=== PATIENT | female | born 1945 | race Caucasian/White ===

== ENCOUNTER 2017-08-09 16:39 | Inpatient (IN) ==
[2017-08-09] MEDS: *HR* Metformin 500 MG TABLET PO SCH (20:35)
[2017-08-10] MEDS: Ibuprofen 800 MG TABLET PO SCH ×4 (01:16→18:37)
[2017-08-10 05:44] LABS: Basophils # 0.1 K/mcL (0.0-0.2); Basophils % 0.9 %; Eosinophils # 0.3 K/mcL (0.0-0.6); Eosinophils % 4.8 %; Hematocrit 32.8 % (35.3-44.9); Hemoglobin 10.8 g/dL (11.5-15.4); Immature Granulocytes % 0.2 % (0-4); Lymphocytes # 1.7 K/mcL (0.6-4.6); Lymphocytes % 31.1 %; Mean Corpuscular HGB Conc 32.9 g/dL (31.6-35.5); Mean Corpuscular Hemoglobin 27.5 pg (28.0-33.3); Mean Corpuscular Volume 83.5 fL (83.0-100.0); Mean Platelet Volume 9.9 fL (9.4-12.4); Monocytes # 0.5 K/mcL (0.0-1.3); Monocytes % 8.9 %; Neutrophils # 2.9 K/mcL (1.6-8.9); Platelet Count 257 K/mcL (140-400); Red Blood Count 3.93 M/mcL (3.82-4.97); Red Cell Distribution Width 18.6 % (11.5-14.5); Segmented Neutrophils % 54.1 %
[2017-08-10 05:46] LABS: INR 1.1; Prothrombin Time 12.2 Seconds (9.4-12.1)
[2017-08-10 05:49] LABS: Activated Partial Thrombo Time 26.6 Seconds (26.0-36.0)
[2017-08-10 05:58] LABS: BUN/Creatinine Ratio 8 (6-26); Calcium 8.7 mg/dL (8.6-10.8); Carbon Dioxide 23 mEq/L (19-29); Chloride 107 mEq/L (98-109); Glucose 118 mg/dL (70-99); Osmolality,Calculated 282 (280-300); Potassium 3.5 mEq/L (3.5-4.5); Sodium 137 mEq/L (136-145); eGFR For African Americans > 60 (> 60); eGFR For Non-African Americans > 60 (> 60)
[2017-08-10 06:08] LABS: Blood Urea Nitrogen 5 mg/dL (7-20)
[2017-08-10] MEDS: Aspirin 81 MG TAB.CHEW PO SCH (08:43)
[2017-08-10] MEDS: Lisinopril 20 MG TABLET PO SCH (08:43)
[2017-08-10] MEDS: *HR* Metformin 500 MG TABLET PO SCH ×2 (08:43→20:26)
--- NOTE | 2017-08-10 13:55 | Physical Med Progress Note ---
Date of Encounter: 08/10/17 Time of Encounter: 13:51 Physical Medicine-PN: Subj Interval history: PMR PCC Note Patient is SBA for ambulation. Min A for bed mobility and transfers. Patient ambulated with wheeled walker. Patient ambulated 300 feet. Ptient is set up with SBA for dressing and self care. Plan for discharge to home on 08/12/17. Patient has family to assist at home. - Constitutional Vitals: Vital Signs Temp Pulse Resp BP Pulse Ox 08/10/17 12:58 82 16 160/89 92 08/10/17 09:00 98.5 F 82 16 160/89 92 08/10/17 08:58 82 16 160/89 92 08/10/17 03:12 98.0 F 66 16 159/80 95 08/09/17 23:39 97.9 F 64 16 145/71 97 08/09/17 19:10 98.2 F 80 18 150/79 96 08/09/17 18:00 98.0 F 82 16 156/83 96 Intake and Output 08/09/17 08/10/17 08/10/17 23:59 07:59 15:59 Intake Total 240 / 240 Balance 240 / 240 Intake: Oral 240 / 240 Other: Meal Breakfast Percent of Meal Consumed 75% Stool Size Moderate Stool Consistency loose soft Stool Color Brown # Voids 1 1 2 Weight 49.3 kg Blood Glucose* 132 166 Physical Medicine-PN: Obj Data - Labs CBC & Chem 7: 08/10/17 05:30 08/10/17 05:30 Labs: Laboratory Results - last 24 hr 08/09/17 08/10/17 08/10/17 19:39 05:30 05:30 WBC 5.4 RBC 3.93 Hgb 10.8 L Hct 32.8 L MCV 83.5 MCH 27.5 L MCHC 32.9 RDW 18.6 H Plt Count 257 MPV 9.9 Immature Gran % 0.2 Seg Neutrophils % 54.1 Lymphocytes % 31.1 Monocytes % 8.9 Eosinophils % 4.8 Basophils % 0.9 Neutrophils # 2.9 Lymphocytes # 1.7 Monocytes # 0.5 Eosinophils # 0.3 Basophils # 0.1 PT 12.2 H INR 1.1 APTT 26.6 Sodium Potassium Chloride Carbon Dioxide BUN Creatinine Est GFR ( Amer) Est GFR (Non-Af Amer) BUN/Creatinine Ratio Glucose POC Glucose 132 H Calculated Osmolality Calcium 08/10/17 08/10/17 05:30 07:32 WBC RBC Hgb Hct MCV MCH MCHC RDW Plt Count MPV Immature Gran % Seg Neutrophils % Lymphocytes % Monocytes % Eosinophils % Basophils % Neutrophils # Lymphocytes # Monocytes # Eosinophils # Basophils # PT INR APTT Sodium 137 Potassium 3.5 Chloride 107 Carbon Dioxide 23 BUN 5 L Creatinine 0.64 Est GFR ( Amer) > 60 Est GFR (Non-Af Amer) > 60 BUN/Creatinine Ratio 8 Glucose 118 H POC Glucose 113 H Calculated Osmolality 282 Calcium 8.7 - ABG Interpretation ABG results: PT/INR, D-dimer PT 12.2 Seconds (9.4-12.1) H 08/10/17 05:30 - VTE Documentation of Mechanical Device: Graduated compression elastic hosiery Consult Discharge Plan - Plan Referrals: Get Kirkpatrick Jr, MD [Primary Care Provider] -
--- NOTE | 2017-08-10 15:43 | Internal Med History&Physical ---
Date of Encounter: 08/10/17 Time of Encounter: 15:38 Assessment and Plan (1) NSTEMI (non-ST elevated myocardial infarction) Current visit: No Status: Acute Patient had a myocardial infarction which precipitated R Gath which precipitated to CABG. Patient had a colonoscopy which revealed a colon cancer in the right colon. And in turn she underwent a colectomy. The heart attack and compartment CABG was in June (2) Colon cancer Current visit: No Status: Acute Diagnostic colonoscopy Qualifiers: Colon location: ascending Qualified Code(s): C18.2 - Malignant neoplasm of ascending colon (3) Diabetes mellitus type 2 in nonobese Current visit: No Status: Chronic Follow blood sugars (4) FH: CABG (coronary artery bypass surgery) Current visit: No Status: Chronic At the CABG in June. It was felt she needed that prior to having her colon resection Internal Medicine - H&P: HPI Chief complaint: Patient is deconditioned after having been through a CABG sometime before f Admitted From: Home History of present illness: Ms. Jimenez is a 71 year old female Patient has not done much therapy since her colectomy. But she is being up out of bed moving around and I think with a few days here that she should do well be able to be discharged home for household distances Past Med Surg Social Fam HX - Past Medical History Medical history: cancer, coronary artery disease, diabetes, hyperlipidemia, hypertension, myocardial infarction Psychiatric history: no psych history - Past Surgical History Surgical History: appendectomy, coronary bypass (CABG) - Social History Smoking Status: Former smoker Smokeless Tobacco Status: No Alcohol use: none Drug use: none - Family History Father Family Member Ethnicity: Non- Living Status: Age at : 72 Cause of : RESP FAILURE Hx Family Respiratory Disorders: Yes Internal Medicine - H&P: Meds Atorvastatin [Lipitor] 40 mg PO HS 06/03/17 [History] Ferrous Sulfate [Iron] 325 mg PO DAILY 06/03/17 [History] Lisinopril [Zestril] 20 mg PO DAILY 06/03/17 [History] metFORMIN [Glucophage] 1,000 mg PO BID 06/03/17 [History] Metoprolol [Lopressor] 25 mg PO BID #60 tablet 07/07/17 [Rx] OxyCODONE/APAP 5/325 [Percocet 5/325 MG] 1 each PO Q4HR PRN #20 tablet 07/07/17 [Rx] Aspirin 81 mg PO DAILY 08/05/17 [History] Omeprazole Magnesium [Prilosec Otc] 20 mg PO DAILY 08/05/17 [History] Docusate [Colace] 100 mg PO BID #30 udc 08/09/17 [Rx] Ibuprofen 800 mg PO Q8H #60 tablet 08/09/17 [Rx] OxyCODONE/APAP 5/325 [Percocet 5/325 MG] 1 each PO Q6HR PRN #28 tablet 08/09/17 [Rx] 3 Allergy/AdvReac Type Severity Reaction Status Date / Time No Known Allergies Allergy Verified 08/05/17 13:42 All Systems PM: A 10-system review of systems was performed and is negative for pertinent findings except as documented above in the HPI. - Constitutional Constitutional: no anorexia, no chills, no excessive sweating, no fatigue, no fever(s), no falls, no lethargy, no malaise, no night sweats, no weakness, no weight gain, no weight loss - EENT Eyes: no blurry vision, no change in vision, no decreased night vision, no diplopia, no discharge, no dry eye, no floaters, no irritation, no itchy eyes, no loss of peripheral vision, no loss of vision, no pain, no photophobia, no seeing flashes, no spots in vision, no tunnel vision, no other visual disturbances Ears: no decreased hearing, no ear discharge, no ear pain, no tinnitus Nose, mouth and throat: no as per HPI, no bleeding gums, no change in voice, no dental pain, no dry mouth, no dysphagia, no epistaxis, no facial pain, no hoarseness, no nasal congestion, no nasal discharge, no nasal obstruction, no neck mass, no neck pain, no nose pain, no odynophagia, no post-nasal drip, no sinus pain, no sinus pressure, no sore throat, no throat swelling, no tongue swelling - Breasts Breasts: no change in shape, no mass, no pain, no nipple discharge, no skin changes, no swelling - Cardiovascular Cardiovascular ROS IM: no chest pain, no claudication, no diaphoresis, no dyspnea, no dyspnea on exertion, no edema, no irregular heart rhythm, no lightheadedness, no orthopnea, no palpitations, no paroxysmal nocturnal dyspnea , no syncope - Respiratory Respiratory: no cough, no dyspnea, no hemoptysis, no dyspnea on exertion, no wheezing, no snoring, no excessive phlegm production, no change in phlegm color , no pain with cough - Gastrointestinal Gastrointestinal: loose stools, no abdominal pain, no belching, no bloating, no change in bowel habits, no change in stool character, no coffee ground emesis, no cramping, no excessive flatus, no fecal incontinence, no heartburn, no hematemesis, no hematochezia, no melena, no nausea, no odynophagia - Genitourinary Genitourinary: no abnormal menses, no abnormal vaginal bleeding, no amenorrhea, no breast change in shape, no breast mass, no breast pain, no breast skin changes, no breast swelling, no change in libido, no change in urinary stream, no difficulty conceiving, no difficulty urinating, no difficulty voiding, no dysmenorrhea, no dyspareunia, no dysuria, no flank pain, no genital lesions, no genital pruritis, no hematuria, no light periods, no menorrhagia, no metrorrhagia, no nipple discharge, no nocturia, no pelvic pain, no post void dribbling, no prolapse symptoms, no sexual dysfunction, no urinary frequency, no urinary hesitancy, no urinary incontinence, no urinary urgency, no vaginal discharge, no vaginal dryness, no vaginal odor, no vaginal pruritis, no other Menstruation: amenorrhea, menses variable - Musculoskeletal Musculoskeletal ROS IM: no arthralgias, no atrophy, no back pain, no deformity, no joint swelling, no limited range of motion, no muscle cramps, no muscle weakness, no myalgias, no neck pain, no numbness, no stiffness, no tingling - Integumentary Integumentary IM: no erythema, no new lesions, no non-healing lesions, no pruritus, no rash, no skin ulcer, no unusual bruising, no jaundice - Neurological Neurological ROS: no abnormal gait, no abnormal hearing, no abnormal movements, no abnormal speech, no behavioral changes, no burning sensations, no confusion, no convulsions, no disequilibrium, no dizziness, no focal weakness, no lack of coordination, no loss of vision, no memory loss, no paresthesias, no radicular pain, no tingling, no tremor(s), no vertigo, no weakness, no other visual disturbances - Psychiatric Psychiatric: no abnormal sleep pattern, no anhedonia, no anxiety, no auditory hallucinations, no behavioral changes, no change in appetite, no change in libido, no depression, no difficulty concentrating, no hallucinations, no irritability, no memory loss, no panic attacks, no paranoia, no suicidal ideation, no visual hallucinations, no tactile - Endocrine Endocrine IM: no cold intolerance, no deeping of the voice, no excessive sweating, no fatigue, no flushing, no heat intolerance, no polydipsia, no polyphagia, no polyuria - Hematologic/Lymphatic Hematologic/Lymphatic: no easy bleeding, no easy bruising, no lymphadenopathy - Allergic/Immunologic Allergic/Immunologic: no tongue swelling, no throat swelling, no itchy eyes, no seasonal rhinorrhea, no uticaria, no wheezing, no GI upset with certain foods, no lip swelling - Constitutional Vitals: Temp Pulse Resp BP Pulse Ox 98.5 F 82 16 160/89 92 08/10/17 09:00 08/10/17 12:58 08/10/17 12:58 08/10/17 12:58 08/10/17 12:58 - Head Head exam: Present: atraumatic, normal inspection, normocephalic - Neck Neck exam general surgery: Present: supple, trachea midline. Absent: lymphadenopathy - Respiratory Respiratory exam: Present: CTAB. Absent: accessory muscle use, rales, rhonchi, wheezes - Cardiovascular Cardiovascular exam: Present: RRR, +S1, +S2. Absent: diastolic murmur, gallop, rubs, systolic murmur - GI/Abdominal GI/Abdominal exam: Present: normal bowel sounds, soft, no peritoneal signs. Absent: distended, tenderness Additional comments: Patient denies any abdominal pain. She has a clean large dressing along the mid lower abdomen. Internal Med - H&P Results - Labs CBC & Chem 7: 08/10/17 05:30 08/10/17 05:30 Labs: Short CBC 08/10/17 Range/Units 05:30 WBC 5.4 (4.3-11.1) K/mcL Hgb 10.8 L (11.5-15.4) g/dL Hct 32.8 L (35.3-44.9) % Plt Count 257 (140-400) K/mcL Neutrophils # 2.9 (1.6-8.9) K/mcL BMP 08/10/17 05:30 Sodium 137 Potassium 3.5 Chloride 107 Carbon Dioxide 23 BUN 5 L Creatinine 0.64 Glucose 118 H Calcium 8.7 Labs stable - VTE Documentation of Mechanical Device: Graduated compression elastic hosiery
[2017-08-10] MEDS: *HR* OxyCODONE/APAP 5/325 TABLET PO PRN (21:48)
[2017-08-11] MEDS: Ibuprofen 800 MG TABLET PO SCH ×3 (03:59→20:06)
[2017-08-11] MEDS: *HR* OxyCODONE/APAP 5/325 TABLET PO PRN (05:17)
[2017-08-11] MEDS: Lisinopril 20 MG TABLET PO SCH (08:16)
[2017-08-11] MEDS: *HR* Metformin 500 MG TABLET PO SCH ×2 (08:16→20:06)
[2017-08-11] MEDS: Aspirin 81 MG TAB.CHEW PO SCH (08:16)
--- NOTE | 2017-08-11 14:05 | Internal Med Progress Note ---
Date of Encounter: 08/11/17 Time of Encounter: 14:03 - Assessment and plan (1) NSTEMI (non-ST elevated myocardial infarction) Current Visit: No Status: Acute Assessment and plan: By history (2) Colon cancer Current Visit: No Status: Acute Assessment and plan: Cancer of the right colon was found on colonoscopy. Biopsy was done and noted that was colon cancer. After her CABG in her [place] she was stabilized and then a right colectomy was done. And she is here for rehabilitation due to deconditioning. Qualifiers: Colon location: ascending Qualified Code(s): C18.2 - Malignant neoplasm of ascending colon (3) Diabetes mellitus type 2 in nonobese Current Visit: No Status: Chronic Assessment and plan: Following blood sugars (4) FH: CABG (coronary artery bypass surgery) Current Visit: No Status: Chronic Assessment and plan: She had a CABG in June. As a breakfast before her colon surgery - Time Spent With Patient less than 15 minutes - Subjective Interval history: Seems to be doing well C PT OT TR and speech notes. - Constitutional Vitals: Temp Pulse Resp BP Pulse Ox 98.6 F 56 18 186/71 95 08/11/17 07:33 08/11/17 07:33 08/11/17 07:33 08/11/17 07:33 08/11/17 07:33 - Head Head exam: Present: atraumatic, normal inspection, normocephalic - Neck Neck exam general surgery: Present: supple, trachea midline. Absent: lymphadenopathy - Respiratory Respiratory exam: Present: CTAB. Absent: accessory muscle use, rales, rhonchi, wheezes - GI/Abdominal GI/Abdominal exam: Present: normal bowel sounds, soft, no peritoneal signs. Absent: distended, tenderness Internal Medicine: Result - Labs CBC & Chem 7: 08/10/17 05:30 08/10/17 05:30 Labs: Patient's lab is stable - ABG Interpretation ABG results: PT/INR, D-dimer PT 12.2 Seconds (9.4-12.1) H 08/10/17 05:30 - VTE Documentation of Mechanical Device: Graduated compression elastic hosiery Consult Discharge Plan - Plan Referrals: Get Kirkpatrick Jr, MD [Primary Care Provider] -
[2017-08-12] MEDS: Ibuprofen 800 MG TABLET PO SCH ×2 (03:57→08:42)
[2017-08-12] MEDS: Lisinopril 20 MG TABLET PO SCH (08:41)
[2017-08-12] MEDS: Aspirin 81 MG TAB.CHEW PO SCH (08:42)
[2017-08-12] MEDS: *HR* Metformin 500 MG TABLET PO SCH (08:42)
[2017-08-12 10:35] VITALS: BP 161/85
--- NOTE | 2017-09-09 13:44 | Discharge Summary ---
Date of Encounter: 08/12/17 Time of Encounter: 13:43 - Discharge Diagnosis (1) NSTEMI (non-ST elevated myocardial infarction) Priority: Primary Status: Acute (2) Colon cancer Priority: Primary Status: Acute Qualifiers: Colon location: ascending Qualified Code(s): C18.2 - Malignant neoplasm of ascending colon (3) Diabetes mellitus type 2 in nonobese Priority: Secondary Status: Chronic (4) FH: CABG (coronary artery bypass surgery) Priority: Secondary Status: Chronic - Discharge Medications Home Medications: Atorvastatin [Lipitor] 40 mg PO HS 06/03/17 [History] Ferrous Sulfate [Iron] 325 mg PO DAILY 06/03/17 [History] Lisinopril [Zestril] 20 mg PO DAILY 06/03/17 [History] metFORMIN [Glucophage] 1,000 mg PO BID 06/03/17 [History] Metoprolol [Lopressor] 25 mg PO BID #60 tablet 07/07/17 [Rx] OxyCODONE/APAP 5/325 [Percocet 5/325 MG] 1 each PO Q4HR PRN #20 tablet 07/07/17 [Rx] Aspirin 81 mg PO DAILY 08/05/17 [History] Omeprazole Magnesium [Prilosec Otc] 20 mg PO DAILY 08/05/17 [History] Docusate [Colace] 100 mg PO BID #30 udc 08/09/17 [Rx] Ibuprofen 800 mg PO Q8H #60 tablet 08/09/17 [Rx] OxyCODONE/APAP 5/325 [Percocet 5/325 MG] 1 each PO Q6HR PRN #28 tablet 08/09/17 [Rx] Allergies/Adverse Reactions: 3 Allergy/AdvReac Type Severity Reaction Status Date / Time No Known Allergies Allergy Verified 08/05/17 13:42 Date of admission: 08/09/17 17:40 Primary care physician: Get Kirkpatrick Jr, MD Consults: 08/09/17 17:57 Consult to Nutrition [CONS] Routine Comment: Consulting Provider: NUTRITION Reason for Dietary Consult: MST Score Consult to Transport Rn [CONS] Routine Reason for SW Consult: REHAB REQUESTING INFO REGARDING ADV. DIRECTIVES 08/09/17 18:25 Consult to Occupational Therapy [CONS] Routine Comment: Evaluate, develop and implement POC Reason for Consult: S/P R COLECTOMY Consult to Physical Therapy [CONS] Routine Comment: Evaluate, develop and implement POC Reason for Consult: S/P R COLECTOMY Consult to Recreational Therapy [CONS] Routine Comment: Evaluate, develop and implement POC Discharging clinician: Dennis Robertson Anticipated date of discharge: 08/12/17 - Patient Status Disposition: Home, Self-Care Condition: Good Functional capacity at discharge: uses cane/walker Overall status at discharge: patient is progressing back to baseline - Discharge Instructions Instructions: Colectomy (DC) Follow Up With: Rich Rangel MD [Partnered Physician] - 08/15/17 1:35 pm Shirlene Garner CNP [Advanced Practice Nurse] - 08/17/17 2:00 pm Donna Camacho CNP [Advanced Practice Nurse] - 08/22/17 9:45 am - Diet and Activity Activity: ambulate only with your walker Diet: diabetic diet Interval History: Patient was admitted for deconditioning. She is just gone through some very severe medical issues here recently. She was found to have colon cancer but then had an TN and heart catheter and a CABG. After she was stabilized she had a colon resection. She was pretty deconditionied. Hospital course: Ms. Jimenez is a 71 year old female We will came in for deconditioning after several medical problems. She walked 300 feet with a walker doing well and is working with all modalities of therapy - Time Spent with Patient Total time spent providing and/or coordinating discharge services: Less than 30 minutes - Constitutional Vitals: Temp Pulse Resp BP Pulse Ox 97.5 F L 85 18 161/85 99 08/12/17 07:00 08/12/17 07:00 08/12/17 07:00 08/12/17 10:35 08/12/17 07:00 - Head Head exam: Present: atraumatic, normal inspection, normocephalic - Neck Neck exam general surgery: Present: supple, trachea midline. Absent: lymphadenopathy - Respiratory Respiratory exam: Present: CTAB. Absent: accessory muscle use, rales, rhonchi, wheezes - Cardiovascular Cardiovascular exam: Present: RRR, +S1, +S2. Absent: diastolic murmur, gallop, rubs, systolic murmur - VTE Documentation of Mechanical Device: Graduated compression elastic hosiery
== END 2017-08-12 12:45 | disposition home or self-care (01) | DRG 949 ==
LOC: INPGRE 17:40
PROVIDERS: ADMIT Internal Medicine; ATTEND Internal Medicine

== ENCOUNTER 2018-10-24 16:17 | Inpatient (IN) ==
[2018-10-27] MEDS ORDERED: Temazepam 15 MG CAPSULE PO PRN (18:29)
[2018-10-27] MEDS ORDERED: D5% in Water 1,000 ML IVC PRN (18:40)
[2018-10-27] MEDS ORDERED: Dextrose Gel 15 GM/37.5 ML TUBE PO PRN ×2 (18:40)
[2018-10-27] MEDS ORDERED: *HR* Dextrose 50 % in Water (Syg) 50 ML SYRINGE IVP PRN (18:40)
[2018-10-27] MEDS: Lisinopril 20 MG TABLET PO SCH (21:19)
[2018-10-27] MEDS: *HR* Enoxaparin 30 MG/0.3 ML SYRINGE SQ SCH (21:20)
[2018-10-27] MEDS: *HR* OxyCODONE Immed Rel 5 MG TABLET PO PRN (21:20)
[2018-10-27] MEDS: Insulin LISPRO 300 UNITS/3 ML VIAL SQ SCH (21:20)
[2018-10-28] MEDS: *HR* OxyCODONE Immed Rel 5 MG TABLET PO PRN ×2 (04:14→18:34)
[2018-10-28] MEDS: *HR* Enoxaparin 30 MG/0.3 ML SYRINGE SQ SCH ×2 (04:14→18:22)
[2018-10-28 06:21] LABS: Basophils # 0.1 K/mcL (0.0-0.2); Basophils % 0.9 %; Eosinophils # 0.2 K/mcL (0.0-0.6); Eosinophils % 2.6 %; Hematocrit 32.7 % (35.3-44.9); Hemoglobin 10.3 g/dL (11.5-15.4); Immature Granulocytes % 0.6 % (0-4); Lymphocytes # 1.9 K/mcL (0.6-4.6); Lymphocytes % 28.2 %; Mean Corpuscular HGB Conc 31.5 g/dL (31.6-35.5); Mean Corpuscular Hemoglobin 30.3 pg (28.0-33.3); Mean Corpuscular Volume 96.2 fL (83.0-100.0); Mean Platelet Volume 11.2 fL (9.4-12.4); Monocytes # 0.8 K/mcL (0.0-1.3); Monocytes % 12.2 %; Neutrophils # 3.7 K/mcL (1.6-8.9); Platelet Count 296 K/mcL (140-400); Red Cell Distribution Width 13.1 % (11.5-14.5); Segmented Neutrophils % 55.5 %
[2018-10-28 06:23] LABS: INR 1.2; Prothrombin Time 13.2 Seconds (9.4-12.1)
[2018-10-28 06:26] LABS: Activated Partial Thrombo Time 30.6 Seconds (26.0-36.0)
[2018-10-28 06:34] LABS: BUN/Creatinine Ratio 46 (6-26); Blood Urea Nitrogen 41 mg/dL (8-23); Calcium 8.9 mg/dL (8.6-10.3); Carbon Dioxide 21 mEq/L (23-29); Chloride 100 mEq/L (98-107); Glucose 206 mg/dL (70-105); Osmolality,Calculated 290 (280-300); Potassium 4.2 mEq/L (3.5-5.1); Sodium 132 mEq/L (136-145); eGFR For Non-African Americans > 60 (> 60)
[2018-10-28] MEDS ORDERED: *HR* Metformin 500 MG TABLET PO SCH (08:00)
[2018-10-28] MEDS: Insulin LISPRO 300 UNITS/3 ML VIAL SQ SCH ×4 (09:01→21:14)
[2018-10-28] MEDS: Lisinopril 20 MG TABLET PO SCH (09:02)
[2018-10-28] MEDS: Aspirin 325 MG TABLET PO SCH (09:02)
[2018-10-28] MEDS: Acetaminophen 325 MG TABLET PO PRN (09:02)
--- NOTE | 2018-10-28 15:36 | Internal Med History&Physical ---
Date of Encounter: 10/29/18 Time of Encounter: 14:50 Assessment and Plan (1) S/p left hip fracture Current visit: Yes Status: Acute sustained after fall at home S/P surgical repair deconditioning and weakness reduced mobility rehab PT OT (2) Failure to thrive in adult Current visit: Yes Status: Acute will add diet supplement will add megace will encourage intake will DC metformin for now as may add to not eating will treat constipation will add vit D (3) Diabetes mellitus type 2 in nonobese Current visit: No Status: Chronic as above metformin on hold will use slide scale insulin and continue to monitor Internal Medicine - H&P: HPI Admitted From: Intrahospital Transfer History of present illness: Ms. Jimenez is a 72 year old female who is admit to rehab unit for deconditioning. She states she fell at her sister's home and sustained left hip fracture. She had surgical repair. She states since she has had a lot of pain in the left hip. Says she is looking forward to getting her mobility back. She reports she is constipated and has no BM since surgery. She says nauseated and no appetite. Says has no appetite over about 4 months. Thinks metformin may be making nauseated. She says she worked a lot all of her life, and used to be very strong. Says she had DM and has been on oral agents. Reports hx of CAD. She had CABG i n the past and says that was when she did stop smoking. She says she has also had nstemi and hx of colon ca. Physical Exam: Gen frail WM alert oriented mild [place]ENT perrla nose clear oral mucosa dry Neck supple no bruit Heart s1s2 no M abd soft nt BS hypoactive no rebound left hip dressing skin thin with mult small bruises ext pulses intact Past Med Surg Social Fam HX - Past Medical History Medical history: arthritis, cancer, coronary artery disease, diabetes, GERD, GI bleed, hyperlipidemia, hypertension, malignancy, myocardial infarction Additional medical history: md [facility] elective stenting of RCA,hypercholesterolemia,heart stents x2,anemia, Psychiatric history: no psych history - Past Surgical History Surgical History: appendectomy, colectomy, coronary bypass (CABG) Additional surgical history: cardiac stents x2 - Social History Smoking Status: Former smoker Smokeless Tobacco Status: No Alcohol use: none Drug use: none - Family History Father Family Member Ethnicity: Non- Living Status: Hx Family Cardiac Disorders: Yes (brother) Hx Family Respiratory Disorders: Yes (father) Hx Family Cancer: Yes (sister,self) Hx Family GI Disorders: Yes (self) Hx Family Endocrine Disorder: Yes (sister) Hx Family Neuromuscular Disorders: No Hx Family Neurologic Disorders: No Hx Family HEENT Disorders: No Hx Family Autoimmune Disorders: No Mother Age: 80 Living Status: Age at : 80 Hx Family Neurologic Disorders: Yes (alzheimers) Internal Medicine - H&P: Meds Atorvastatin [Lipitor] 40 mg PO HS 06/03/17 [History] Ferrous Sulfate [Iron] 325 mg PO DAILY 06/03/17 [History] Lisinopril [Zestril] 20 mg PO BID 06/03/17 [History] metFORMIN [Glucophage] 500 mg PO BID 06/03/17 [History] Metoprolol [Lopressor] 25 mg PO BID 09/13/17 [History] glipiZIDE [Glucotrol] 5 mg PO DAILY 10/24/18 [History] Aspirin 325 mg PO DAILY 30 Days #30 tablet 10/27/18 [Rx] Enoxaparin [Lovenox] 30 mg SQ Q12HCO 14 Days #28 syringe 10/27/18 [Rx] Omeprazole [PriLOSEC] 20 mg PO DAILY@0630 capsule. 10/27/18 [Rx] OxyCODONE Immed Rel [Roxicodone 5 MG] 5 mg PO Q8HR PRN 4 Days #12 tablet 10/27/18 [Rx] Temazepam [Restoril] 15 mg PO HS PRN 4 Days #4 capsule 10/27/18 [Rx] Allergy/AdvReac Type Severity Reaction Status Date / Time No Known Allergies Allergy Verified 10/24/18 14:21 All Systems PM: A 10-system review of systems was performed and is negative for pertinent findings except as documented above in the HPI. - Constitutional Vitals: Temp Pulse Resp BP Pulse Ox 97.0 F L 62 16 109/63 96 10/28/18 11:00 10/28/18 11:00 10/28/18 11:00 10/28/18 11:00 10/28/18 11:00 Internal Med - H&P Results - Labs CBC & Chem 7: 10/28/18 05:40 10/29/18 04:55 Labs: Short CBC 10/28/18 Range/Units 05:40 WBC 6.7 (4.3-11.1) K/mcL Hgb 10.3 L (11.5-15.4) g/dL Hct 32.7 L (35.3-44.9) % Plt Count 296 (140-400) K/mcL Neutrophils # 3.7 (1.6-8.9) K/mcL BMP 10/28/18 05:40 Sodium 132 L Potassium 4.2 Chloride 100 Carbon Dioxide 21 L BUN 41 H Creatinine 0.90 Glucose 206 H Calcium 8.9
[2018-10-28] MEDS: Megestrol Acetate 400 MG/10 ML UDC PO SCH (18:22)
[2018-10-29] MEDS: *HR* Enoxaparin 30 MG/0.3 ML SYRINGE SQ SCH (04:58)
[2018-10-29 05:22] LABS: Calcium 8.6 mg/dL (8.6-10.3); Potassium 4.3 mEq/L (3.5-5.1)
[2018-10-29] MEDS: Megestrol Acetate 400 MG/10 ML UDC PO SCH (08:14)
[2018-10-29] MEDS: *HR* OxyCODONE Immed Rel 5 MG TABLET PO PRN ×2 (08:15→20:53)
[2018-10-29] MEDS: Insulin LISPRO 300 UNITS/3 ML VIAL SQ SCH ×4 (08:15→20:59)
[2018-10-29] MEDS: Aspirin 325 MG TABLET PO SCH (08:15)
--- NOTE | 2018-10-29 12:15 | Internal Med Progress Note ---
Date of Encounter: 10/29/18 Time of Encounter: 11:45 - Assessment and plan (1) S/p left hip fracture Current Visit: Yes Status: Acute (2) Failure to thrive in adult Current Visit: Yes Status: Acute (3) Diabetes mellitus type 2 in nonobese Current Visit: No Status: Chronic - Subjective Interval history: Assessment and Plan (1) S/p left hip fracture Current visit: Yes Status: Acute sustained after fall at home S/P surgical repair left hip deconditioning and weakness reduced mobility rehab PT OT (2) Failure to thrive in adult Current visit: Yes Status: Acute added diet supplement added megace will encourage intake did DC metformin for now as may have added to reduced appetite and to not eating treated constipation added vit D (3) Diabetes mellitus type 2 in nonobese Current visit: No Status: Chronic as above metformin on hold blood sugars stable continue use slide scale insulin and continue to monitor Interval HX Admitted From: Intrahospital Transfer after left hip repair Ms. Jimenez is a 72 year old female who was admit to rehab unit for deconditioning. She reports she was constipated but today had good BM . She says for months had been nauseated and no appetite, was getting weaker at home before falling. She says nothing happened she just fell onto the floor . Thinks metformin may be making nauseated. Metformin was DC , megace was added, and she says no nausea today. She says she worked a lot all of her life, and used to be very strong. No chest or abd pain. Physical Exam: Gen frail WM alert oriented mild [place] HEENT perrla nose clear oral mucosa no lesion Neck supple no bruit Heart s1s2 no M abd soft nt BS hypoactive no rebound left hip dressing skin thin with mult small bruises ext pulses intact - Constitutional Vitals: Temp Pulse Resp BP Pulse Ox 98.1 F 69 16 111/67 94 10/29/18 07:00 10/29/18 07:00 10/29/18 07:00 10/29/18 07:00 10/29/18 07:00 Internal Medicine: Result - Labs CBC & Chem 7: 10/28/18 05:40 10/29/18 04:55 Labs: BMP 10/29/18 04:55 Sodium 133 L Potassium 4.3 Chloride 102 Carbon Dioxide 22 L BUN 55 H Creatinine 1.28 H Glucose 200 H Calcium 8.6 - ABG Interpretation ABG results: PT/INR, D-dimer PT 13.2 Seconds (9.4-12.1) H 10/28/18 05:40 Consult Discharge Plan - Plan Referrals: Get Kirkpatrick Jr, MD [Primary Care Provider] -
[2018-10-29] MEDS ORDERED: Leptospermum Honey GEL 1 APPL/5 ML MLS TP SCH (13:00)
[2018-10-29] MEDS: Cholecalciferol (D-3) 1,000 UNIT TABLET PO SCH (13:29)
[2018-10-29] MEDS: Leptospermum Honey Gel 44 ML TUBE TP SCH (16:02)
[2018-10-30] MEDS: *HR* Enoxaparin 30 MG/0.3 ML SYRINGE SQ SCH (05:12)
[2018-10-30 06:19] LABS: INR 1.2
[2018-10-30 06:21] LABS: Basophils # 0.1 K/mcL (0.0-0.2); Basophils % 0.7 %; Eosinophils # 0.1 K/mcL (0.0-0.6); Eosinophils % 1.9 %; Hematocrit 30.5 % (35.3-44.9); Immature Granulocytes % 0.9 % (0-4); Lymphocytes # 2.4 K/mcL (0.6-4.6); Lymphocytes % 34.9 %; Mean Corpuscular HGB Conc 32.8 g/dL (31.6-35.5); Mean Corpuscular Volume 94.4 fL (83.0-100.0); Mean Platelet Volume 10.5 fL (9.4-12.4); Monocytes # 0.7 K/mcL (0.0-1.3); Monocytes % 10.7 %; Neutrophils # 3.4 K/mcL (1.6-8.9); Platelet Count 340 K/mcL (140-400); Red Blood Count 3.23 M/mcL (3.82-4.97); Red Cell Distribution Width 13.2 % (11.5-14.5); Segmented Neutrophils % 50.9 %
[2018-10-30 06:22] LABS: Activated Partial Thrombo Time 28.5 Seconds (26.0-36.0); BUN/Creatinine Ratio 55 (6-26); Blood Urea Nitrogen 47 mg/dL (8-23); Calcium 8.5 mg/dL (8.6-10.3); Carbon Dioxide 22 mEq/L (23-29); Chloride 101 mEq/L (98-107); Glucose 164 mg/dL (70-105); Osmolality,Calculated 290 (280-300); Sodium 132 mEq/L (136-145); eGFR For Non-African Americans > 60 (> 60)
[2018-10-30] MEDS: *HR* OxyCODONE Immed Rel 5 MG TABLET PO PRN ×2 (06:35→15:00)
[2018-10-30] MEDS: Aspirin 325 MG TABLET PO SCH (07:47)
[2018-10-30] MEDS: Cholecalciferol (D-3) 1,000 UNIT TABLET PO SCH (07:47)
[2018-10-30] MEDS: Insulin LISPRO 300 UNITS/3 ML VIAL SQ SCH ×4 (07:47→21:16)
[2018-10-30] MEDS: Megestrol Acetate 400 MG/10 ML UDC PO SCH (07:47)
[2018-10-30] MEDS: Leptospermum Honey Gel 44 ML TUBE TP SCH (07:48)
[2018-10-30] MEDS: Acetaminophen 325 MG TABLET PO PRN ×2 (10:19→21:14)
--- NOTE | 2018-10-30 14:43 | Internal Med Progress Note ---
Date of Encounter: 10/30/18 Time of Encounter: 15:00 - Assessment and plan (1) S/p left hip fracture Current Visit: Yes Status: Acute (2) Failure to thrive in adult Current Visit: Yes Status: Acute (3) Diabetes mellitus type 2 in nonobese Current Visit: No Status: Chronic - Subjective Interval history: Assessment and Plan (1) S/p left hip fracture Current visit: Yes Status: Acute sustained after fall at home S/P surgical repair left hip deconditioning and weakness reduced mobility rehab PT OT skin - pt says has bumped herself a lot and she has some open area skin left lateral buttock, and small open area 0.5 cm around sacrum. she has previous scar over sacrum and not much soft tissue. No other erythema no drng will have skin care (2) Failure to thrive in adult Current visit: Yes Status: Acute added diet supplement added megace will encourage intake Pt eating better today says she ate some pork did DC metformin for now as may have added to reduced appetite and to not eating treated constipation added vit D (3) Diabetes mellitus type 2 in nonobese Current visit: No Status: Chronic as above metformin on hold blood sugars stable continue use slide scale insulin and continue to monitor Interval HX Admitted From: Intrahospital Transfer after left hip repair Ms. Jimenez is a 72 year old female who was admit to rehab unit for deconditioning. She reports she was constipated now had good BM . She says for months had been nauseated and no appetite, was getting weaker at home before falling. She says nothing happened she just fell onto the floor . Thinks metformin may be making nauseated. Metformin was DC , megace was added, and she says no nausea today. Appetite improving She says she worked a lot all of her life, and used to be very strong. She has lost muscle.. She is doing well with therapy and walked in [place] with walker No chest or abd pain. No sob Physical Exam: Gen frail WM alert oriented mild [place] HEENT perrla nose clear oral mucosa no lesion Neck supple no bruit Heart s1s2 no M abd soft nt BS hypoactive no rebound left hip dressing skin thin with mult small bruises she has superficial wounds irregular not full skin thickness to left lateral buttock/hip ext pulses intact - Constitutional Vitals: Temp Pulse Resp BP Pulse Ox 97.7 F 70 16 120/60 96 10/30/18 07:24 10/30/18 07:24 10/30/18 07:24 10/30/18 07:24 10/30/18 07:24 Internal Medicine: Result - Labs CBC & Chem 7: 10/30/18 05:50 10/30/18 05:50 Labs: Short CBC 10/30/18 Range/Units 05:50 WBC 6.7 (4.3-11.1) K/mcL Hgb 10.0 L (11.5-15.4) g/dL Hct 30.5 L (35.3-44.9) % Plt Count 340 (140-400) K/mcL Neutrophils # 3.4 (1.6-8.9) K/mcL BMP 10/30/18 05:50 Sodium 132 L Potassium 4.0 Chloride 101 Carbon Dioxide 22 L BUN 47 H Creatinine 0.86 Glucose 164 H Calcium 8.5 L - ABG Interpretation ABG results: PT/INR, D-dimer PT 13.0 Seconds (9.4-12.1) H 10/30/18 05:50 Consult Discharge Plan - Plan Referrals: Get Kirkpatrick Jr, MD [Primary Care Provider] -
[2018-10-31] MEDS: *HR* OxyCODONE Immed Rel 5 MG TABLET PO PRN ×2 (02:29→20:41)
[2018-10-31] MEDS: Leptospermum Honey Gel 44 ML TUBE TP SCH (02:50)
[2018-10-31] MEDS: *HR* Enoxaparin 30 MG/0.3 ML SYRINGE SQ SCH (05:15)
[2018-10-31] MEDS: Aspirin 325 MG TABLET PO SCH (08:13)
[2018-10-31] MEDS: Acetaminophen 325 MG TABLET PO PRN (08:13)
[2018-10-31] MEDS: Cholecalciferol (D-3) 1,000 UNIT TABLET PO SCH (08:13)
[2018-10-31] MEDS: Megestrol Acetate 400 MG/10 ML UDC PO SCH (08:14)
[2018-10-31] MEDS: Insulin LISPRO 300 UNITS/3 ML VIAL SQ SCH ×4 (08:18→20:43)
--- NOTE | 2018-10-31 14:29 | Internal Med Progress Note ---
Date of Encounter: 10/31/18 Time of Encounter: 13:30 - Assessment and plan (1) S/p left hip fracture Current Visit: Yes Status: Acute Assessment and plan: We will continue with therapy as planned previously. She seems to be doing well and is pleased with her progress. (2) Chest pain Current Visit: No Status: Acute Assessment and plan: Current pain is posttraumatic and seems to be rib contusion, only. She continues to have problems, might do formal rib films. Will use ice topically as a trial. Qualifiers: Chest pain type: unspecified Qualified Code(s): R07.9 - Chest pain, unspecified (3) Failure to thrive in adult Current Visit: Yes Status: Acute Assessment and plan: This is stable and will follow. (4) Diabetes mellitus type 2 in nonobese Current Visit: No Status: Chronic Assessment and plan: Most readings are adequately controlled. We will follow with sliding scale. - Subjective Interval history: Patient complains of pain at her right lower chest and states that she has rib fractures. However, review of her x-ray from October 26 shows no evidence of rib fracture, effusion, etc. I explained to the patient that this is probably bruising from her fall and she seemed pleased with this. I also told her that we no longer blind or wrap ribs. I suggested that she try ice as a medicine as a therapy. Other than her hip pain, which is adequately controlled, she is feeling well. She has no bowel or bladder problems. Discussed care with other providers and/or nursing. Patient has no complaint of chest discomfort, dyspnea, orthopnea, palpitations, nausea or vomiting, constipation or diarrhea, other changes in bowel habits, difficulty with urination, rash or itching, or other new complaints, except as mentioned above. Review of systems is otherwise negative. Examination: (Except as mentioned above): - Constitutional Vitals: Temp Pulse Resp BP Pulse Ox 97.9 F 64 16 138/79 95 10/31/18 06:59 10/31/18 06:59 10/31/18 06:59 10/31/18 06:59 10/31/18 06:59 Exam: General: In no apparent distress. Alert and oriented 3. Nondiaphoretic. Head: Atraumatic and normocephalic. Respiratory: No use of accessory muscles. Lungs are clear throughout. Normal airflow. Cardiovascular: Regular rate and rhythm without murmur appreciated. Abdomen: Bowel sounds are normal. No hepatosplenomegaly mass or tenderness appreciated. Obese and therefore difficult to palpate deeply. Patient is examined upright at bedside and this also limits exam. Extremities: No cyanosis clubbing or edema. Skin: Warm and non-diaphoretic with no new lesions noted. Internal Medicine: Result - Labs CBC & Chem 7: 10/30/18 05:50 10/30/18 05:50 - ABG Interpretation ABG results: PT/INR, D-dimer PT 13.0 Seconds (9.4-12.1) H 10/30/18 05:50 Consult Discharge Plan - Plan Referrals: Get Kirkpatrick Jr, MD [Primary Care Provider] -
[2018-10-31] MEDS: *HR* Metformin 500 MG TABLET PO SCH (17:33)
[2018-11-01] MEDS: *HR* Enoxaparin 30 MG/0.3 ML SYRINGE SQ SCH (05:00)
[2018-11-01] MEDS: *HR* OxyCODONE Immed Rel 5 MG TABLET PO PRN ×2 (05:03→14:59)
[2018-11-01] MEDS: Insulin LISPRO 300 UNITS/3 ML VIAL SQ SCH ×4 (09:18→20:57)
[2018-11-01] MEDS: Acetaminophen 325 MG TABLET PO PRN ×2 (09:19→20:56)
[2018-11-01] MEDS: *HR* Metformin 500 MG TABLET PO SCH ×2 (09:19→17:54)
[2018-11-01] MEDS: Megestrol Acetate 400 MG/10 ML UDC PO SCH (09:19)
[2018-11-01] MEDS: *HR* GlipiZIDE 5 MG TABLET PO SCH (09:19)
[2018-11-01] MEDS: Cholecalciferol (D-3) 1,000 UNIT TABLET PO SCH (09:19)
[2018-11-01] MEDS: Leptospermum Honey Gel 44 ML TUBE TP SCH (09:19)
[2018-11-01] MEDS: Aspirin 325 MG TABLET PO SCH (09:19)
--- NOTE | 2018-11-01 14:08 | Internal Med Progress Note ---
Date of Encounter: 11/01/18 Time of Encounter: 09:30 - Assessment and plan (1) S/p left hip fracture Current Visit: Yes Status: Acute Assessment and plan: We will continue with therapy. She needs to participate with more motivation and this is a concern. (2) Chest pain Current Visit: No Status: Acute Assessment and plan: Improved with ice, as above. Qualifiers: Chest pain type: unspecified Qualified Code(s): R07.9 - Chest pain, unspecified (3) Failure to thrive in adult Current Visit: Yes Status: Acute Assessment and plan: She seems to be doing well and will follow. (4) Diabetes mellitus type 2 in nonobese Current Visit: No Status: Chronic Assessment and plan: Adequate control, will continue with sliding scale. - Subjective Interval history: Patient is doing well. She has less hip pain and rib pain, than yesterday. She is pleased with the response of her rib pain to ice. She has no other complaints. Therapy staff notes that she has a "learned helplessness" attitude and passively with therapy. We will need to have a care plan that includes 18/04 assistance. Discussed care with other providers and/or nursing. Patient has no complaint of chest discomfort, dyspnea, orthopnea, palpitations, nausea or vomiting, constipation or diarrhea, other changes in bowel habits, difficulty with urination, rash or itching, or other new complaints, except as mentioned above. Review of systems is otherwise negative. Examination: (Except as mentioned above): - Constitutional Vitals: Temp Pulse Resp BP Pulse Ox 97.6 F 67 15 136/56 96 11/01/18 08:45 11/01/18 08:45 11/01/18 08:45 11/01/18 08:45 11/01/18 08:45 Exam: Examination: (Except as mentioned above): General: In no apparent distress. Alert and oriented 3. Nondiaphoretic. Head: Atraumatic and normocephalic. Respiratory: No use of accessory muscles. Lungs are clear throughout. Normal airflow. Cardiovascular: Regular rate and rhythm without murmur appreciated. Abdomen: Bowel sounds are normal. No hepatosplenomegaly mass or tenderness appreciated. Obese and therefore difficult to palpate deeply. Extremities: No cyanosis clubbing or edema. Skin: Warm and non-diaphoretic with no new lesions noted. Internal Medicine: Result - Labs CBC & Chem 7: 10/30/18 05:50 10/30/18 05:50 - ABG Interpretation ABG results: PT/INR, D-dimer PT 13.0 Seconds (9.4-12.1) H 10/30/18 05:50 Consult Discharge Plan - Plan Referrals: Get Kirkpatrick Jr, MD [Primary Care Provider] -
[2018-11-02] MEDS: *HR* OxyCODONE Immed Rel 5 MG TABLET PO PRN ×2 (04:08→13:41)
[2018-11-02] MEDS: *HR* Enoxaparin 30 MG/0.3 ML SYRINGE SQ SCH (04:09)
[2018-11-02] MEDS: Aspirin 325 MG TABLET PO SCH (08:12)
[2018-11-02] MEDS: Cholecalciferol (D-3) 1,000 UNIT TABLET PO SCH (08:13)
[2018-11-02] MEDS: *HR* Metformin 500 MG TABLET PO SCH ×2 (08:13→18:05)
[2018-11-02] MEDS: *HR* GlipiZIDE 5 MG TABLET PO SCH (08:13)
[2018-11-02] MEDS: Leptospermum Honey Gel 44 ML TUBE TP SCH (08:14)
[2018-11-02] MEDS: Megestrol Acetate 400 MG/10 ML UDC PO SCH (08:14)
[2018-11-02] MEDS: Insulin LISPRO 300 UNITS/3 ML VIAL SQ SCH ×4 (08:17→20:25)
[2018-11-02] MEDS: Acetaminophen 325 MG TABLET PO PRN (08:20)
--- NOTE | 2018-11-02 12:20 | Internal Med Progress Note ---
Date of Encounter: 11/02/18 Time of Encounter: 12:15 - Subjective Interval history: Patient appears relaxed and currently denies any discomforts or shortness of breath. She states that the pain to her hip surgical site has been tolerable with current medications. - Constitutional Vitals: Temp Pulse Resp BP Pulse Ox 97.8 F 69 16 158/79 98 11/02/18 07:39 11/02/18 07:39 11/02/18 07:39 11/02/18 07:39 11/02/18 07:39 General appearance: Present: A&O X 3, pleasant - Head Head exam: Present: atraumatic, normocephalic - Eye Eye exam: Present: PERRL, conjuntiva pink, sclera anicteric Pupils: Present: PERRL - Neck Neck exam general surgery: Present: supple, trachea midline. Absent: lymphadenopathy - Respiratory Respiratory exam: Present: CTAB. Absent: accessory muscle use, rales, rhonchi, wheezes - Cardiovascular Cardiovascular exam: Present: RRR, +S1, +S2. Absent: diastolic murmur, gallop, rubs, systolic murmur - GI/Abdominal GI/Abdominal exam: Present: normal bowel sounds, soft, no peritoneal signs. Absent: distended, tenderness - Extremities Exam Extremities exam: Present: warm, radial pulses palpable and symmetrical. Absent: calf tenderness, cyanotic, pedal edema Additional comments: Surgical dressing re - Neurological Exam Neurological exam: Present: CN II-XII intact, oriented X3, no focal deficits. Absent: pronater drift, facial droop, speech deficit - Skin Skin exam: Present: dry, intact Internal Medicine: Result - Labs CBC & Chem 7: 10/30/18 05:50 10/30/18 05:50 - ABG Interpretation ABG results: PT/INR, D-dimer PT 13.0 Seconds (9.4-12.1) H 10/30/18 05:50 Consult Discharge Plan - Plan Referrals: Get Kirkpatrick Jr, MD [Primary Care Provider] -
--- NOTE | 2018-11-02 13:39 | Internal Med Progress Note ---
Addendum entered and electronically signed by Julio C Sams MD 11/02/18 15:35: I have personally performed a face to face evaluation on this patient. I have r eviewed and agree with the care plan. History and Exam by me shows: Patient is without complaint. She has no issues except she admits to continued right rib pain. She states this responds nicely to ice. She is doing better with therapy and plans to go home soon. Discussed care with other providers and/or nursing. Patient has no complaint of chest discomfort, dyspnea, orthopnea, palpitations, nausea or vomiting, constipation or diarrhea, other changes in bowel habits, difficulty with urination, rash or itching, or other new complaints, except as mentioned above. Review of systems is otherwise negative. Examination: (Except as mentioned above): General: In no apparent distress. Alert and oriented 3. Nondiaphoretic. Head: Atraumatic and normocephalic. Respiratory: No use of accessory muscles. Lungs are clear throughout. Normal airflow. Cardiovascular: Regular rate and rhythm without murmur appreciated. Abdomen: Bowel sounds are normal. No hepatosplenomegaly mass or tenderness appreciated. Obese and therefore difficult to palpate deeply. Patient is examined upright in chair and this also limits exam. Extremities: No cyanosis clubbing or edema. Skin: Warm and non-diaphoretic with no new lesions noted. Original Note: Date of Encounter: 11/02/18 Time of Encounter: 13:36 - Assessment and plan (1) S/p left hip fracture Current Visit: Yes Status: Acute Assessment and plan: No acute issues. Patient's surgical wound appears healthy and intact. Pain well managed with current meds. Patient now participating more with therapy and is progressing well. Will continue with current plan of care. (2) Diabetes mellitus type 2 in nonobese Current Visit: Yes Status: Chronic Assessment and plan: No acute issues. Glucose has been well controlled <200. Will continue to cover with sliding scale insulin (3) CAD (coronary artery disease) Current Visit: Yes Status: Chronic Assessment and plan: No acute issues. Patient denies any chest discomforts or palpitations. We will continue with current medications Qualifiers: Coronary Disease-Associated Artery/Lesion type: [place] artery [place] vs. transplanted heart: [place] heart Associated angina: without angina Qualified Code(s): I25.10 - Atherosclerotic heart disease of [place] coronary artery without angina pectoris - Time Spent With Patient less than 15 minutes - Subjective Interval history: Patient appears relaxed and currently denies any discomforts or shortness of breath. She states that the pain to her hip surgical site has been tolerable with current medications. Patient states that her therapy today has been going well. - Constitutional Vitals: Temp Pulse Resp BP Pulse Ox 97.8 F 69 16 158/79 98 11/02/18 07:39 11/02/18 07:39 11/02/18 07:39 11/02/18 07:39 11/02/18 07:39 General appearance: Present: A&O X 3, pleasant - Head Head exam: Present: atraumatic, normocephalic - Eye Eye exam: Present: PERRL, conjuntiva pink, sclera anicteric Pupils: Present: PERRL - Neck Neck exam general surgery: Present: supple, trachea midline. Absent: lymphadenopathy - Respiratory Respiratory exam: Present: CTAB. Absent: accessory muscle use, rales, rhonchi, wheezes - Cardiovascular Cardiovascular exam: Present: RRR, +S1, +S2. Absent: diastolic murmur, gallop, rubs, systolic murmur - GI/Abdominal GI/Abdominal exam: Present: normal bowel sounds, soft, no peritoneal signs. Absent: distended, tenderness - Extremities Exam Extremities exam: Present: warm, radial pulses palpable and symmetrical. Absent: calf tenderness, cyanotic, pedal edema Additional comments: Left hip surgical dressing remains dry and intact. Slight amount of edema and ecchymosis noted. - Neurological Exam Neurological exam: Present: CN II-XII intact, oriented X3, no focal deficits. Absent: pronater drift, facial droop, speech deficit - Skin Skin exam: Present: dry, intact Internal Medicine: Result - Labs CBC & Chem 7: 10/30/18 05:50 10/30/18 05:50 - ABG Interpretation ABG results: PT/INR, D-dimer PT 13.0 Seconds (9.4-12.1) H 10/30/18 05:50 Consult Discharge Plan - Plan Referrals: Get Kirkpatrick Jr, MD [Primary Care Provider] -
[2018-11-03] MEDS: *HR* OxyCODONE Immed Rel 5 MG TABLET PO PRN ×3 (02:12→18:48)
[2018-11-03] MEDS: *HR* Enoxaparin 30 MG/0.3 ML SYRINGE SQ SCH (05:35)
[2018-11-03] MEDS: Acetaminophen 325 MG TABLET PO PRN ×3 (05:39→21:35)
[2018-11-03] MEDS: Insulin LISPRO 300 UNITS/3 ML VIAL SQ SCH ×4 (07:38→21:07)
[2018-11-03] MEDS: Cholecalciferol (D-3) 1,000 UNIT TABLET PO SCH (09:41)
[2018-11-03] MEDS: *HR* Metformin 500 MG TABLET PO SCH ×2 (09:41→18:48)
[2018-11-03] MEDS: *HR* GlipiZIDE 5 MG TABLET PO SCH (09:41)
[2018-11-03] MEDS: Megestrol Acetate 400 MG/10 ML UDC PO SCH (09:42)
[2018-11-03] MEDS: Aspirin 325 MG TABLET PO SCH (09:42)
[2018-11-03] MEDS: Leptospermum Honey Gel 44 ML TUBE TP SCH (09:44)
--- NOTE | 2018-11-03 11:07 | Internal Med Progress Note ---
Addendum entered and electronically signed by Julio C Sams MD 11/04/18 09:51: I tried multiple times yesterday to see patient but she was either in bathroom more with therapy so could not perform a formal visit. She stated in the hallway and she was doing fine. Original Note: Date of Encounter: 11/03/18 Time of Encounter: 11:05 - Assessment and plan (1) S/p left hip fracture Current Visit: Yes Status: Acute Assessment and plan: Continue PT and OT. Will follow progress. Pain controlled with current medication. Follow up with ortho as scheduled. (2) Diabetes mellitus type 2 in nonobese Current Visit: Yes Status: Chronic Assessment and plan: Controlled with current medication. Continue to monitor fingerstick blood sugar. (3) CAD (coronary artery disease) Current Visit: Yes Status: Chronic Assessment and plan: Controlled. Denies chest pain. Continue current medication. Qualifiers: Coronary Disease-Associated Artery/Lesion type: [place] artery [place] vs. transplanted heart: [place] heart Associated angina: without angina Qualified Code(s): I25.10 - Atherosclerotic heart disease of [place] coronary artery without angina pectoris - Time Spent With Patient less than 15 minutes - Subjective Interval history: Patient currently resting in bed. States pain is controlled with current medication. Last bowel movement was this morning. Maintaining appetite and hydration. Participating well with therapy. Denies fever, chills, nausea vomiting or diarrhea. - Constitutional Vitals: Temp Pulse Resp BP Pulse Ox 98.0 F 88 16 129/70 97 11/03/18 06:45 11/03/18 09:37 11/03/18 06:45 11/03/18 09:37 11/03/18 06:45 General appearance: Present: cooperative, A&O X 3, pleasant, no acute distress, answers questions appropriately - Head Head exam: Present: atraumatic, normocephalic - Eye Eye exam: Present: PERRL, conjuntiva pink, sclera anicteric Pupils: Present: PERRL - Neck Neck exam general surgery: Present: supple, trachea midline. Absent: lymphadenopathy - Respiratory Respiratory exam: Present: CTAB. Absent: accessory muscle use, rales, rhonchi, wheezes - Cardiovascular Cardiovascular exam: Present: RRR, +S1, +S2. Absent: diastolic murmur, gallop, rubs, systolic murmur - GI/Abdominal GI/Abdominal exam: Present: normal bowel sounds, soft, no peritoneal signs. Absent: distended, tenderness - Extremities Exam Extremities exam: Present: warm, radial pulses palpable and symmetrical. Absent: calf tenderness, cyanotic, pedal edema - [place]ison Comments: Left hip incision dressing dry and intact. - Neurological Exam Neurological exam: Present: CN II-XII intact, oriented X3, no focal deficits. Absent: pronater drift, facial droop, speech deficit - Skin Skin exam: Present: dry, intact Additional comments: scattered ecchymosis to bilateral upper extremities Internal Medicine: Result - Labs CBC & Chem 7: 10/30/18 05:50 10/30/18 05:50 - ABG Interpretation ABG results: PT/INR, D-dimer PT 13.0 Seconds (9.4-12.1) H 10/30/18 05:50 Consult Discharge Plan - Plan Referrals: Get Kirkpatrick Jr, MD [Primary Care Provider] -
[2018-11-04] MEDS: *HR* Enoxaparin 30 MG/0.3 ML SYRINGE SQ SCH (05:51)
[2018-11-04] MEDS: *HR* OxyCODONE Immed Rel 5 MG TABLET PO PRN ×2 (05:55→16:57)
[2018-11-04] MEDS: Aspirin 325 MG TABLET PO SCH (08:45)
[2018-11-04] MEDS: Cholecalciferol (D-3) 1,000 UNIT TABLET PO SCH (08:45)
[2018-11-04] MEDS: Insulin LISPRO 300 UNITS/3 ML VIAL SQ SCH ×4 (08:45→21:13)
[2018-11-04] MEDS: *HR* GlipiZIDE 5 MG TABLET PO SCH (08:46)
[2018-11-04] MEDS: Megestrol Acetate 400 MG/10 ML UDC PO SCH (08:46)
[2018-11-04] MEDS: *HR* Metformin 500 MG TABLET PO SCH ×2 (08:46→16:57)
[2018-11-04] MEDS: Leptospermum Honey Gel 44 ML TUBE TP SCH (08:47)
[2018-11-04] MEDS: Acetaminophen 325 MG TABLET PO PRN ×2 (08:57→21:09)
--- NOTE | 2018-11-04 14:07 | Internal Med Progress Note ---
Date of Encounter: 11/04/18 Time of Encounter: 11:20 - Assessment and plan (1) S/p left hip fracture Current Visit: Yes Status: Acute Assessment and plan: We will continue with therapy. Per therapy, she still needs to have better motivation. (2) Chest pain Current Visit: No Status: Acute Assessment and plan: Improved with ice. Qualifiers: Chest pain type: unspecified Qualified Code(s): R07.9 - Chest pain, unspecified (3) Failure to thrive in adult Current Visit: Yes Status: Acute Assessment and plan: She seems to be doing well and will follow. (4) Diabetes mellitus type 2 in nonobese Current Visit: Yes Status: Chronic Assessment and plan: Adequate control, will continue with sliding scale. - Subjective Interval history: Patient feels well. She is still having performance issues, with therapy. She feels like she is progressing well and looking forward to going home. Therapy still feels like she needs 24 7 care if she goes home. Rib and hip pain are both improving and are well controlled at this point. Bowels moved well and bladder has not been a problem. Discussed care with other providers and/or nursing. Patient has no complaint of chest discomfort, dyspnea, orthopnea, palpitations, nausea or vomiting, constipation or diarrhea, other changes in bowel habits, difficulty with urination, rash or itching, or other new complaints, except as mentioned above. Review of systems is otherwise negative. Examination: (Except as mentioned above): - Constitutional Vitals: Temp Pulse Resp BP Pulse Ox 98.7 F 71 18 143/69 96 11/04/18 08:33 11/04/18 08:33 11/04/18 08:33 11/04/18 08:33 11/04/18 08:33 Exam: Examination: (Except as mentioned above): General: In no apparent distress. Alert and oriented 3. Nondiaphoretic. Head: Atraumatic and normocephalic. Respiratory: No use of accessory muscles. Lungs are clear throughout. Normal airflow. Cardiovascular: Regular rate and rhythm without murmur appreciated. Abdomen: Bowel sounds are normal. No hepatosplenomegaly mass or tenderness appreciated. Obese and therefore difficult to palpate deeply. Extremities: No cyanosis clubbing or edema. Skin: Warm and non-diaphoretic with no new lesions noted. Internal Medicine: Result - Labs CBC & Chem 7: 10/30/18 05:50 10/30/18 05:50 - ABG Interpretation ABG results: PT/INR, D-dimer PT 13.0 Seconds (9.4-12.1) H 10/30/18 05:50 Consult Discharge Plan - Plan Referrals: Get Kirkpatrick Jr, MD [Primary Care Provider] -
[2018-11-05] MEDS: *HR* OxyCODONE Immed Rel 5 MG TABLET PO PRN ×2 (03:34→17:46)
[2018-11-05] MEDS: *HR* Enoxaparin 30 MG/0.3 ML SYRINGE SQ SCH (05:53)
[2018-11-05] MEDS: Insulin LISPRO 300 UNITS/3 ML VIAL SQ SCH ×4 (07:47→20:10)
[2018-11-05] MEDS: Aspirin 325 MG TABLET PO SCH (08:58)
[2018-11-05] MEDS: Cholecalciferol (D-3) 1,000 UNIT TABLET PO SCH (08:58)
[2018-11-05] MEDS: *HR* Metformin 500 MG TABLET PO SCH ×2 (08:58→17:13)
[2018-11-05] MEDS: Acetaminophen 325 MG TABLET PO PRN (08:59)
[2018-11-05] MEDS: Leptospermum Honey Gel 44 ML TUBE TP SCH (08:59)
[2018-11-05] MEDS: Megestrol Acetate 400 MG/10 ML UDC PO SCH (08:59)
[2018-11-05] MEDS: *HR* GlipiZIDE 5 MG TABLET PO SCH (08:59)
--- NOTE | 2018-11-05 15:15 | Internal Med Progress Note ---
Date of Encounter: 11/06/18 Time of Encounter: 15:13 - Assessment and plan (1) S/p left hip fracture Current Visit: Yes Status: Acute Assessment and plan: We will continue with therapies and returned to function, as planned. Therapy has been concerned about her independence at home and we will discuss with them, tomorrow. (2) Chest pain Current Visit: No Status: Acute Assessment and plan: Improved with ice. Qualifiers: Chest pain type: unspecified Qualified Code(s): R07.9 - Chest pain, unspecified (3) Failure to thrive in adult Current Visit: Yes Status: Acute Assessment and plan: She actually seems to be doing better. (4) Diabetes mellitus type 2 in nonobese Current Visit: Yes Status: Chronic Assessment and plan: Most readings are acceptable and we will continue to follow with sliding scale. - Subjective Interval history: Patient is without complaint. She states the bowels and bladder are working fine. She wants home. We discussed that therapy has plans to send her home in the middle of this coming week. Discussed care with other providers and/or nursing. Patient has no complaint of chest discomfort, dyspnea, orthopnea, palpitations, nausea or vomiting, constipation or diarrhea, other changes in bowel habits, difficulty with urination, rash or itching, or other new complaints, except as mentioned above. Review of systems is otherwise negative. Examination: (Except as mentioned above): - Constitutional Vitals: Temp Pulse Resp BP Pulse Ox 98.0 F 70 16 160/77 97 11/05/18 07:15 11/05/18 07:15 11/05/18 07:15 11/05/18 07:15 11/05/18 07:15 Exam: Examination: (Except as mentioned above): General: In no apparent distress. Alert and oriented 3. Nondiaphoretic. Head: Atraumatic and normocephalic. Respiratory: No use of accessory muscles. Lungs are clear throughout. Normal airflow. Cardiovascular: Regular rate and rhythm without murmur appreciated. Abdomen: Bowel sounds are normal. No hepatosplenomegaly mass or tenderness appreciated. Obese and therefore difficult to palpate deeply. Extremities: No cyanosis clubbing or edema. Skin: Warm and non-diaphoretic with no new lesions noted. Internal Medicine: Result - Labs CBC & Chem 7: 11/06/18 05:35 11/06/18 05:35 - ABG Interpretation ABG results: PT/INR, D-dimer PT 13.0 Seconds (9.4-12.1) H 10/30/18 05:50 Consult Discharge Plan - Plan Referrals: Get Kirkpatrick Jr, MD [Primary Care Provider] -
[2018-11-06 05:51] LABS: INR 1.2; Prothrombin Time 13.5 Seconds (9.4-12.1)
[2018-11-06 05:53] LABS: Activated Partial Thrombo Time 21.7 Seconds (26.0-36.0); Basophils # 0.1 K/mcL (0.0-0.2); Basophils % 0.8 %; Eosinophils # 0.1 K/mcL (0.0-0.6); Eosinophils % 1.6 %; Immature Granulocytes % 1.5 % (0-4); Lymphocytes # 2.3 K/mcL (0.6-4.6); Lymphocytes % 30.2 %; Mean Corpuscular HGB Conc 32.3 g/dL (31.6-35.5); Mean Corpuscular Hemoglobin 30.7 pg (28.0-33.3); Mean Corpuscular Volume 95.1 fL (83.0-100.0); Mean Platelet Volume 9.8 fL (9.4-12.4); Monocytes # 0.7 K/mcL (0.0-1.3); Monocytes % 8.8 %; Neutrophils # 4.3 K/mcL (1.6-8.9); Platelet Count 437 K/mcL (140-400); Red Blood Count 3.26 M/mcL (3.82-4.97); Red Cell Distribution Width 13.8 % (11.5-14.5); Segmented Neutrophils % 57.1 %
[2018-11-06] MEDS: Acetaminophen 325 MG TABLET PO PRN ×2 (05:56→18:33)
[2018-11-06] MEDS: *HR* Enoxaparin 30 MG/0.3 ML SYRINGE SQ SCH (05:56)
[2018-11-06 06:13] LABS: BUN/Creatinine Ratio 15 (6-26); Blood Urea Nitrogen 11 mg/dL (8-23); Calcium 8.9 mg/dL (8.6-10.3); Carbon Dioxide 21 mEq/L (23-29); Chloride 106 mEq/L (98-107); Glucose 133 mg/dL (70-105); Osmolality,Calculated 275 (280-300); Potassium 4.4 mEq/L (3.5-5.1); Sodium 132 mEq/L (136-145); eGFR For Non-African Americans > 60 (> 60)
[2018-11-06] MEDS: Insulin LISPRO 300 UNITS/3 ML VIAL SQ SCH ×4 (07:32→21:15)
[2018-11-06] MEDS: Megestrol Acetate 400 MG/10 ML UDC PO SCH (08:14)
[2018-11-06] MEDS: *HR* Metformin 500 MG TABLET PO SCH ×2 (08:15→17:20)
[2018-11-06] MEDS: *HR* GlipiZIDE 5 MG TABLET PO SCH (08:16)
[2018-11-06] MEDS: Cholecalciferol (D-3) 1,000 UNIT TABLET PO SCH (08:16)
[2018-11-06] MEDS: Leptospermum Honey Gel 44 ML TUBE TP SCH (08:19)
[2018-11-06] MEDS: Aspirin 325 MG TABLET PO SCH (08:19)
--- NOTE | 2018-11-06 10:12 | Internal Med Progress Note ---
Addendum entered and electronically signed by Julio C Sams MD 11/06/18 12:22: I have personally performed a face to face evaluation on this patient. I have r eviewed and agree with the care plan. History and Exam by me shows: Patient has continued improvement in hip pain and rib pain. She states that the rib pain is mild and response to ice, regularly. She has been moving her bowels and not had diarrhea. She is without other complaint is looking forward to going home in a couple of days. Discussed care with other providers and/or nursing. Patient has no complaint of chest discomfort, dyspnea, orthopnea, palpitations, nausea or vomiting, constipation or diarrhea, other changes in bowel habits, difficulty with urination, rash or itching, or other new complaints, except as mentioned above. Review of systems is otherwise negative. Examination: (Except as mentioned above): General: In no apparent distress. Alert and oriented 3. Nondiaphoretic. Head: Atraumatic and normocephalic. Respiratory: No use of accessory muscles. Lungs are clear throughout. Normal airflow. Cardiovascular: Regular rate and rhythm without murmur appreciated. Abdomen: Bowel sounds are normal. No hepatosplenomegaly mass or tenderness appreciated. Obese and therefore difficult to palpate deeply. Extremities: No cyanosis clubbing or edema. She has mild right calf tenderness but there is no edema or increased. I think this is muscular but will follow. Skin: Warm and non-diaphoretic with no new lesions noted. Original Note: Date of Encounter: 11/06/18 Time of Encounter: 10:11 - Assessment and plan (1) S/p left hip fracture Current Visit: Yes Status: Acute Assessment and plan: Continue PT and OT. Will follow progress. Pain controlled with current medication. Follow up with ortho as scheduled. (2) Diabetes mellitus type 2 in nonobese Current Visit: Yes Status: Chronic Assessment and plan: Controlled with current medication. Continue to monitor fingerstick blood sugar. (3) CAD (coronary artery disease) Current Visit: Yes Status: Chronic Assessment and plan: Controlled. Denies chest pain. Continue current medication. Qualifiers: Coronary Disease-Associated Artery/Lesion type: [place] artery [place] vs. transplanted heart: [place] heart Associated angina: without angina Qualified Code(s): I25.10 - Atherosclerotic heart disease of [place] coronary artery without angina pectoris - Time Spent With Patient less than 15 minutes - Subjective Interval history: Patient currently resting in bed. States pain is controlled with current medication. Last bowel movement was this morning. Maintaining appetite and hydration. Participating well with therapy. Denies fever, chills, nausea vomiting or diarrhea. - Constitutional Vitals: Temp Pulse Resp BP Pulse Ox 98.7 F 72 16 126/66 97 11/06/18 06:52 11/06/18 06:52 11/06/18 06:52 11/06/18 06:52 11/06/18 06:52 General appearance: Present: cooperative, A&O X 3, pleasant, no acute distress, answers questions appropriately - Head Head exam: Present: atraumatic, normocephalic - Eye Eye exam: Present: PERRL, conjuntiva pink, sclera anicteric Pupils: Present: PERRL - Neck Neck exam general surgery: Present: supple, trachea midline. Absent: lymphadenopathy - Respiratory Respiratory exam: Present: CTAB. Absent: accessory muscle use, rales, rhonchi, wheezes - Cardiovascular Cardiovascular exam: Present: RRR, +S1, +S2. Absent: diastolic murmur, gallop, rubs, systolic murmur - GI/Abdominal GI/Abdominal exam: Present: normal bowel sounds, soft, no peritoneal signs. Absent: distended, tenderness - Extremities Exam Extremities exam: Present: warm, radial pulses palpable and symmetrical. Absent: calf tenderness, cyanotic, pedal edema - Incison Comments: Left hip incision dressing dry and intact - Neurological Exam Neurological exam: Present: CN II-XII intact, oriented X3, no focal deficits. Absent: pronater drift, facial droop, speech deficit - Skin Skin exam: Present: dry, intact Internal Medicine: Result - Labs CBC & Chem 7: 11/06/18 05:35 11/06/18 05:35 Labs: Short CBC 11/06/18 Range/Units 05:35 WBC 7.6 (4.3-11.1) K/mcL Hgb 10.0 L (11.5-15.4) g/dL Hct 31.0 L (35.3-44.9) % Plt Count 437 H (140-400) K/mcL Neutrophils # 4.3 (1.6-8.9) K/mcL BMP 11/06/18 05:35 Sodium 132 L Potassium 4.4 Chloride 106 Carbon Dioxide 21 L BUN 11 Creatinine 0.72 Glucose 133 H Calcium 8.9 - ABG Interpretation ABG results: PT/INR, D-dimer PT 13.5 Seconds (9.4-12.1) H 11/06/18 05:35 Consult Discharge Plan - Plan Referrals: Get Kirkpatrick Jr, MD [Primary Care Provider] -
[2018-11-06] MEDS: *HR* OxyCODONE Immed Rel 5 MG TABLET PO PRN (13:06)
[2018-11-07] MEDS: *HR* OxyCODONE Immed Rel 5 MG TABLET PO PRN (02:40)
[2018-11-07] MEDS: *HR* Enoxaparin 30 MG/0.3 ML SYRINGE SQ SCH (05:42)
[2018-11-07] MEDS: Insulin LISPRO 300 UNITS/3 ML VIAL SQ SCH ×4 (07:33→20:26)
[2018-11-07] MEDS: Aspirin 325 MG TABLET PO SCH (08:40)
[2018-11-07] MEDS: *HR* GlipiZIDE 5 MG TABLET PO SCH (08:40)
[2018-11-07] MEDS: *HR* Metformin 500 MG TABLET PO SCH ×2 (08:40→16:59)
[2018-11-07] MEDS: Cholecalciferol (D-3) 1,000 UNIT TABLET PO SCH (08:40)
[2018-11-07] MEDS: Leptospermum Honey Gel 44 ML TUBE TP SCH (08:40)
--- NOTE | 2018-11-07 10:11 | Internal Med Progress Note ---
Addendum entered and electronically signed by Julio C Sams MD 11/07/18 13:09: I have personally performed a face to face evaluation on this patient. I have r eviewed and agree with the care plan. History and Exam by me shows: Patient is pleased about going home tomorrow. She has occasional rib pain but this is much improved. She is pleased with the way her therapy is going and the fact that she climbs and descended steps this morning. Bowel and bladder function is normal. Discussed care with other providers and/or nursing. Patient has no complaint of chest discomfort, dyspnea, orthopnea, palpitations, nausea or vomiting, constipation or diarrhea, other changes in bowel habits, difficulty with urination, rash or itching, or other new complaints, except as mentioned above. Review of systems is otherwise negative. Examination: (Except as mentioned above): General: In no apparent distress. Alert and oriented 3. Nondiaphoretic. Head: Atraumatic and normocephalic. Respiratory: No use of accessory muscles. Lungs are clear throughout. Normal airflow. Cardiovascular: Regular rate and rhythm without murmur appreciated. Abdomen: Bowel sounds are normal. No hepatosplenomegaly mass or tenderness appreciated. Obese and therefore difficult to palpate deeply. Patient is examined upright in chair and this also limits exam. Extremities: No cyanosis clubbing or edema. Skin: Warm and non-diaphoretic with no new lesions noted. Original Note: Date of Encounter: 11/07/18 Time of Encounter: 10:08 - Assessment and plan (1) S/p left hip fracture Current Visit: Yes Status: Acute Assessment and plan: Continue PT and OT. Will follow progress. Pain controlled with current medication. Follow up with ortho as scheduled. (2) Diabetes mellitus type 2 in nonobese Current Visit: Yes Status: Chronic Assessment and plan: Controlled with current medication. Continue to monitor fingerstick blood sugar. (3) CAD (coronary artery disease) Current Visit: Yes Status: Chronic Assessment and plan: Controlled. Denies chest pain. Continue current medication. Qualifiers: Coronary Disease-Associated Artery/Lesion type: [place] artery [place] vs. transplanted heart: [place] heart Associated angina: without angina Qualified Code(s): I25.10 - Atherosclerotic heart disease of [place] coronary artery without angina pectoris - Time Spent With Patient less than 15 minutes - Subjective Interval history: States pain is controlled with current medication. Last bowel movement was this morning. Maintaining appetite and hydration. Participating well with therapy. Patient is mod independent in room. Ambulates with Walker. Denies fever, chills, nausea vomiting or diarrhea. - Constitutional Vitals: Temp Pulse Resp BP Pulse Ox 98.4 F 72 16 153/70 97 11/07/18 06:55 11/07/18 06:55 11/07/18 06:55 11/07/18 06:55 11/07/18 06:55 General appearance: Present: cooperative, A&O X 3, pleasant, no acute distress, answers questions appropriately - Head Head exam: Present: atraumatic, normocephalic - Eye Eye exam: Present: PERRL, conjuntiva pink, sclera anicteric Pupils: Present: PERRL - Neck Neck exam general surgery: Present: supple, trachea midline. Absent: lymphadenopathy - Respiratory Respiratory exam: Present: CTAB. Absent: accessory muscle use, rales, rhonchi, wheezes - Cardiovascular Cardiovascular exam: Present: RRR, +S1, +S2. Absent: diastolic murmur, gallop, rubs, systolic murmur - GI/Abdominal GI/Abdominal exam: Present: normal bowel sounds, soft, no peritoneal signs. Absent: distended, tenderness - Extremities Exam Extremities exam: Present: warm, radial pulses palpable and symmetrical. Absent: calf tenderness, cyanotic, pedal edema - Incison Comments: Left hip incision dressing dry and intact. No drainage. - Neurological Exam Neurological exam: Present: CN II-XII intact, oriented X3, no focal deficits. Absent: pronater drift, facial droop, speech deficit - Skin Skin exam: Present: dry, intact Internal Medicine: Result - Labs CBC & Chem 7: 11/06/18 05:35 11/06/18 05:35 - ABG Interpretation ABG results: PT/INR, D-dimer PT 13.5 Seconds (9.4-12.1) H 11/06/18 05:35 Consult Discharge Plan - Plan Referrals: Get Kirkpatrick Jr, MD [Primary Care Provider] -
[2018-11-07] MEDS: Acetaminophen 325 MG TABLET PO PRN ×2 (10:36→17:04)
[2018-11-08] MEDS: *HR* OxyCODONE Immed Rel 5 MG TABLET PO PRN (05:00)
[2018-11-08] MEDS: *HR* Enoxaparin 30 MG/0.3 ML SYRINGE SQ SCH (05:01)
[2018-11-08 07:09] VITALS: BP 132/70
[2018-11-08] MEDS: Aspirin 325 MG TABLET PO SCH (08:06)
[2018-11-08] MEDS: Insulin LISPRO 300 UNITS/3 ML VIAL SQ SCH ×2 (08:06→11:54)
[2018-11-08] MEDS: Cholecalciferol (D-3) 1,000 UNIT TABLET PO SCH (08:07)
[2018-11-08] MEDS: *HR* Metformin 500 MG TABLET PO SCH (08:07)
[2018-11-08] MEDS: *HR* GlipiZIDE 5 MG TABLET PO SCH (08:07)
[2018-11-08] MEDS: Leptospermum Honey Gel 44 ML TUBE TP SCH (08:07)
--- NOTE | 2018-11-08 10:33 | Discharge Summary ---
Addendum entered and electronically signed by Julio C Sams MD 11/08/18 13:37: I have personally performed a face to face evaluation on this patient. I have r eviewed and agree with the care plan. History and Exam by me shows: Patient is without complaint. She is ready to go home. Her questions and her family's questions were answered. She asks if she can get her wound wet and I told her I believe so. She is feeling like therapy is going well. I talked to her about her aspirin a day as per her surgeon. She has no other acute issues. Discussed care with other providers and/or nursing. Patient has no complaint of chest discomfort, dyspnea, orthopnea, palpitations, nausea or vomiting, constipation or diarrhea, other changes in bowel habits, difficulty with urination, rash or itching, or other new complaints, except as mentioned above. Review of systems is otherwise negative. Examination: (Except as mentioned above): General: In no apparent distress. Alert and oriented 3. Nondiaphoretic. Head: Atraumatic and normocephalic. Respiratory: No use of accessory muscles. Lungs are clear throughout. Normal airflow. Cardiovascular: Regular rate and rhythm without murmur appreciated. Abdomen: Bowel sounds are normal. No hepatosplenomegaly mass or tenderness appreciated. Obese and therefore difficult to palpate deeply. Extremities: No cyanosis clubbing or edema. There is no cord or calf tenderness. Her left hip wound is dry and intact. Skin: Warm and non-diaphoretic with no new lesions noted. Original Note: Orders not resulted at time of discharge: Pending orders 11/13/18 04:00 Activated Partial Thrombo Time [COAG] MO Basic Metabolic Panel MO Complete Blood Count [HEME] MO Prothrombin Time INR [COAG] MO 11/20/18 04:00 Activated Partial Thrombo Time [COAG] MO Basic Metabolic Panel MO Complete Blood Count [HEME] MO Prothrombin Time INR [COAG] MO 11/27/18 04:00 Activated Partial Thrombo Time [COAG] MO Basic Metabolic Panel MO Complete Blood Count [HEME] MO Prothrombin Time INR [COAG] MO 12/04/18 04:00 Activated Partial Thrombo Time [COAG] MO Basic Metabolic Panel MO Complete Blood Count [HEME] MO Prothrombin Time INR [COAG] MO Date of Encounter: 02/13/19 Time of Encounter: 10:31 - Discharge Diagnosis (1) S/p left hip fracture Priority: Primary Status: Acute Comments: Patient experienced a fall at home resulting in a left hip fracture. Patient had ORIF of left hip fracture on 10/23/18. She was transferred to this facility for further rehabilitation due to weakness secondary to her hip surgery. Surgical site has remained healthy and intact. Minimal ecchymosis and edema noted to site. Patient has participated in physical therapy has progressed well. Patient states that her pain has been well-controlled with current pain medications. Patient has had follow-up with orthopedic surgeon on 11/06/18 and at that time no further recommendations were offered and marry were removed. Patient is continue her physical therapy through outpatient services here at [facility]. Patient will continue follow-up with orthopedic surg dai and PCP. (2) Diabetes mellitus type 2 in nonobese Priority: Secondary Status: Chronic Comments: No issues during her stay at this facility. Patient's glucose has been fairly well-controlled with most readings less than 170. We will continue with current medications and follow-up with PCP for further management. (3) CAD (coronary artery disease) Priority: Secondary Status: Chronic Comments: No issues during her stay at this facility. Patient has denied any chest discomforts or palpitations. Patient will continue with home medications after discharge and follow-up with PCP. Qualifiers: Coronary Disease-Associated Artery/Lesion type: [place] artery [place] vs. transplanted heart: [place] heart Associated angina: without angina Qualified Code(s): I25.10 - Atherosclerotic heart disease of [place] coronary artery without angina pectoris Hospital course: Ms. Jimenez is a 73 year old female , who is admitted to this facility for rehabilitation due to weakness secondary to her left hip fracture. Patient had a ORIF of left hip on 10/23/18. Her recovery was uneventful area hospital and she was transferred to this facility for further rehabilitation. Patient has dissipated with physical therapy and progressed well during her stay. Left hip surgical incision remains healthy and intact. Her pain has been well-controlled with current medications. Glucose has been well managed with most readings less than 170 on fingersticks. She will discharge and continue her physical therapy to outpatient services here at [facility]. Patient is to follow-up with PCP after discharge for further management. Patient has been seen by orthopedic surgeon on 11/06/18 and will continue her follow-up per orthopedic surgeon Discharge discussed with: patient Time spent discussing smoking cessation with patient: 3 to 10 minutes - Time Spent with Patient Total time spent providing and/or coordinating discharge services: Less than 30 minutes - Discharge Medications Home Medications: Atorvastatin [Lipitor] 40 mg PO HS 06/03/17 [History] Ferrous Sulfate [Iron] 325 mg PO DAILY 06/03/17 [History] Lisinopril [Zestril] 20 mg PO BID 06/03/17 [History] metFORMIN [Glucophage] 500 mg PO BID 06/03/17 [History] Metoprolol [Lopressor] 25 mg PO BID 09/13/17 [History] glipiZIDE [Glucotrol] 5 mg PO DAILY 10/24/18 [History] Aspirin 325 mg PO DAILY 30 Days #30 tablet 10/27/18 [Rx] Enoxaparin [Lovenox] 30 mg SQ Q12HCO 14 Days #28 syringe 10/27/18 [Rx] Omeprazole [PriLOSEC] 20 mg PO DAILY@0630 capsule. 10/27/18 [Rx] Allergies/Adverse Reactions: Allergy/AdvReac Type Severity Reaction Status Date / Time No Known Allergies Allergy Verified 10/24/18 14:21 Date of admission: 10/27/18 17:38 Primary care physician: Get Kirkpatrick Jr, MD Consults: 10/27/18 18:36 Consult to Occupational Therapy [CONS] Routine Comment: Evaluate, develop and implement POC Reason for Consult: S/P LEFT LAUREL Does patient have active BEDREST order?: No Is patient medically & hemodynamically stable?: Yes Patient assessed for mobility or mobilized this visit?: Yes Consult to Physical Therapy [CONS] Routine Comment: Evaluate, develop and implement POC Reason for Consult: S/P LEFT LAUREL Does patient have active BEDREST order?: No Is patient medically & hemodynamically stable?: Yes Patient assessed for mobility or mobilized this visit?: Yes Consult to Recreational Therapy [CONS] Routine Comment: Evaluate, develop and implement POC Consult to Sheet Combining Operator [CONS] Routine Reason for SW Consult: s/p Left LAUREL 10/27/18 18:57 Consult to Nutrition [CONS] Routine Comment: Consulting Provider: NUTRITION Reason for Dietary Consult: MST Score 11/06/18 11:09 Consult to Wound Care [CONS] Routine Reason for Consult: multiple skin breakdown, heals, coccyx, buttox Call Completed: Yes Discharging clinician: Julio C Sams - Constitutional Vitals: Temp Pulse Resp BP Pulse Ox 98.8 F 76 16 132/70 99 11/08/18 07:08 11/08/18 07:08 11/08/18 07:08 11/08/18 07:08 11/08/18 07:08 General appearance: Present: cooperative, A&O X 3, pleasant, no acute distress, answers questions appropriately - Head Head exam: Present: atraumatic, normocephalic - Eye Eye exam: Present: PERRL, conjuntiva pink, sclera anicteric Pupils: Present: PERRL - Neck Neck exam general surgery: Present: supple, trachea midline. Absent: lymphadenopathy - Respiratory Respiratory exam: Present: CTAB. Absent: accessory muscle use, rales, rhonchi, wheezes - Cardiovascular Cardiovascular exam: Present: RRR, +S1, +S2. Absent: diastolic murmur, gallop, rubs, systolic murmur - GI/Abdominal GI/Abdominal exam: Present: normal bowel sounds, soft, no peritoneal signs. Absent: distended, tenderness - Extremities Exam Extremities exam: Present: warm, radial pulses palpable and symmetrical. Absent: calf tenderness, cyanotic, pedal edema Additional comments: Left hip surgical incision remains healthy and intact. Fading ecchymosis noted surrounding surgical incision. - Neurological Exam Neurological exam: Present: CN II-XII intact, oriented X3, no focal deficits. Absent: pronater drift, facial droop, speech deficit - Skin Skin exam: Present: dry, intact - Patient Status Disposition: Home, Self-Care Condition: Good Functional capacity at discharge: uses cane/walker Overall status at discharge: patient is progressing back to baseline - Discharge Instructions Follow Up With: Get Kirkpatrick Jr, MD [Primary Care Provider] - - Diet and Activity Activity: ambulate only with your walker, as per physical therapy Diet: diabetic diet, low fat, low cholesterol, low salt diet
[2018-11-08] MEDS: Acetaminophen 325 MG TABLET PO PRN (11:34)
== END 2018-11-08 14:19 | disposition home or self-care (01) | DRG 561 ==
LOC: INPGRE 10-27 17:38